=== PATIENT | male | born 1970 | race Caucasian/White ===

== ENCOUNTER 2016-09-04 17:40 | Emergency (ER) | payer OTHER ==
[~2016-09-04] VITALS: Ht 185.4 cm; Wt 138.0 kg
[2016-09-04 18:22] VITALS: Ht 185.4 cm; Wt 138.0 kg
[2016-09-04] MEDS ORDERED: ONDANSETRON 4 MG INJ IM STA (21:18)
[2016-09-04] MEDS ORDERED: KETOROLAC 30 MG INJ IM STA (21:18)
--- NOTE | 2016-09-04 21:25 | ERD ---
ER Documentation Chief Complaint Date/Time DATE: 09/04/16 TIME: 21:22 Chief Complaint Shooting back pain, AP, vomiting X 1 hour ago. HPI This is a 46 year-old male who presents to the emergency department today complaining of right-sided back pain that started this afternoon. Patient states that it moved into his stomach and he threw up one time in the parking lot here at the hospital. States he had diarrhea approximately one week ago for which he saw his primary care physician. Denies any fevers or chills. ROS All systems reviewed and are negative except as per history of present illness. Medications Home Meds Active Scripts Ondansetron Hcl* (Zofran*) 4 Mg Tablet, 4 MG PO Q6H for NAUSEA AND/OR VOMITING, #30 TAB Prov:KINJAL TOVAR PA-C 09/04/16 Naproxen* (Naprosyn*) 500 Mg Tablet, 500 MG PO BID Y for PAIN AND/OR INFLAMMATION, #30 TAB Prov:KINJAL TOVAR PA-C 09/04/16 Hydrocodone/Acetaminophen (Perry 10-325 Tablet) 1 Each Tablet, 1 TAB PO Q6H Y for PAIN, #15 TAB Prov:KINJAL TOVAR PA-C 09/04/16 Physical Exam Vitals Vital Signs Date Time Temp Pulse Resp B/P Pulse Ox O2 Delivery O2 Flow Rate FiO2 09/04/16 18:22 97.9 83 16 162/93 97 Physical Exam Const: No acute distress Head: Atraumatic Eyes: Normal Conjunctiva ENT: Normal External Ears, Nose and Mouth. Neck: Full range of motion..~ No meningismus. Resp: Clear to auscultation bilaterally Cardio: Regular rate and rhythm, no murmurs Abd: Soft, non tender, non distended. Normal bowel sounds. Mild right-sided tenderness. No tenderness at McBurney's. No left lower quadrant pain. Skin: No petechiae or rashes Back: No midline tenderness. Right-sided paraspinal and flank tenderness Ext: No cyanosis, or edema Neur: Awake and alert Psych: Normal Mood and Affect Result Diagram: 09/04/16214909/04/162149 Results 24 hrs Laboratory Tests Test 09/04/16 21:40 09/04/16 21:50 Urine Bacteria RARE Urine Bilirubin NEGATIVE Urine Clarity SL HAZY Urine Color LT. YELLOW Urine Glucose >=1000% Urine Hemoglobin 3+ Urine Ketones NEGATIVE Urine Leukocyte Esterase NEGATIVE Urine Microscopic RBC >50/HPF Urine Microscopic WBC 0-2/HPF Urine Nitrite NEGATIVE Urine Specific [place] 1.025 Urine Squamous Epithelial Cells RARE Urine Total Protein 2+ Urine Urobilinogen 0.2 E.U./dL Urine pH 6.0 Alanine Aminotransferase (ALT/SGPT) 86IU/L Albumin 4.4g/dl Albumin/Globulin Ratio 1.12 Alkaline Phosphatase 99IU/L Anion Gap 18 Aspartate Amino Transf (AST/SGOT) 57IU/L Basophils # 0.010^3/ul Basophils % 0.3% Blood Morphology Comment Blood Urea Nitrogen 17mg/dl Calcium Level 9.8mg/dl Carbon Dioxide Level 32mmol/L Chloride Level 96mmol/L Creatinine 0.93mg/dl Direct Bilirubin 0.00mg/dl Eosinophils # 0.110^3/ul Eosinophils % 0.7% Globulin 3.90g/dl Glucose Level 233mg/dl Hematocrit 43.6% Hemoglobin 15.0g/dl Indirect Bilirubin 0.7mg/dl Lipase 103U/L Lymphocytes # 2.110^3/ul Lymphocytes % 20.1% Mean Corpuscular Hemoglobin 30.2pg Mean Corpuscular Hemoglobin Concent 34.5g/dl Mean Corpuscular Volume 87.4fl Mean Platelet Volume 7.3fl Monocytes # 0.510^3/ul Monocytes % 5.1% Neutrophils # 7.810^3/ul Neutrophils % 73.8% Nucleated Red Blood Cells # 0.010^3/ul Nucleated Red Blood Cells % 0.0/100WBC Platelet Count 61293^3/UL Potassium Level 4.7mmol/L Red Blood Count 4.9810^6/ul Red Cell Distribution Width 12.6% Sodium Level 141mmol/L Total Bilirubin 0.7mg/dl Total Protein 8.3g/dl White Blood Count 10.510^3/ul Current Medications Medications (Trade) Dose Ordered Sig/Donavon Route PRN Reason Start Time Stop Time Status Last Admin Dose Admin Ondansetron HCl (Zofran Inj) 4 mg ONCE STAT IM 09/04/16 21:18 09/04/16 21:21 DC Ketorolac Tromethamine (Toradol) 30 mg ONCE STAT IM 09/04/16 21:18 1/4/17 21:21 DC 09/04/16 22:05 Patient: AUGUSTINA JAIMES : 1970 Age: 46 Sex: M MR #: [id number] DOS: 09/04/162117 Ordering MD: KINJAL TOVAR PA-C Location: [facility] Room/Bed: PROCEDURE: CT Abdomen and Pelvis without contrast. CLINICAL INDICATION: Abdominal and pelvic pain. Right-sided pain. TECHNIQUE: CT scan of the abdomen and pelvis without contrast was performed. Coronal and sagittal reformatted images were obtained from the axial source images. Images were reviewed on a high-resolution PACS workstation. Total exam DLP is 1459.89 mGy-cm. CTDIvol is 23.69 mGy. One or more of the following dose reduction techniques were used: Automated exposure control, adjustment of the mA and/or kV according to patient size, use of iterative reconstruction technique. COMPARISON: None. FINDINGS: The lung bases are normal. There is no pleural effusion. The liver is enlarged and diffusely decreased attenuation consistent with fatty metamorphosis. There is no focal hepatic lesion. The gallbladder and bile ducts are normal. The spleen is normal in size. There is no focal splenic lesion. Both adrenals are normal with no enlargement or mass. The pancreas is unremarkable with no mass or evidence of pancreatitis. There is no renal mass or hydronephrosis. There is a 0.1 cm nonobstructing calculus in the mid right kidney. There is no other urinary tract calculus. The abdominal aorta is not dilated. There is no retroperitoneal lymphadenopathy or mass. There is no pelvic lymphadenopathy or mass. The bladder and distal ureters are normal. The appendix is well seen and appears normal. The bowel and mesentery are normal. There is no free fluid or free gas. There are mild degenerative changes of the spine. There is no fracture or lytic lesion. IMPRESSION: 1. Hepatomegaly. 2. Fatty metamorphosis of the liver. 3. Nonobstructing 0.1 cm calculus in the mid right kidney. No other urinary tract calculus or hydronephrosis. 4. Normal appendix. 5. Mild degenerative changes of the spine. 6. Otherwise normal noncontrast CT scan of the abdomen and pelvis. RPTAT: QQ .Flakito Barragan MD, Date Time Electronically viewed and signed by .Flakito Barragan MD, on 09/04/2016 22:22 .R/ CC: KINJAL TOVAR PA-C Procedures/MDM This is a 38-year-old male who presents emergency department today complaining of sudden onset right-sided flank pain that started this afternoon. Patient also stated that he vomited an hour ago. Patient indicated he had a history of kidney stones greater than 20 years ago. Patient did have some flank pain and some right-sided abdominal pain and therefore I did obtain laboratory work as well as imaging Laboratory work shows an elevated white blood count. He is not anemic. His platelets are within normal limits. Electrolytes are within normal limits. Glucose is elevated to 33. Liver function is elevated. Lipase is normal limits. UA is negative for infection. There is greater then [address] abdomen and pelvis noncontrast shows hepatomegaly. Nonobstructing 0.1; he was in the mid right kidney. No other urinary tract Or hydronephrosis. Appendix is normal. There are mild degenerative changes of the spine. There is no free fluid or free gas. There is no pelvic lymphadenopathy or mass. Gallbladder and bile ducts are normal. Patient has no midline tenderness and a lot of bowel or bladder control at low suspicion for cauda equina or abscess. Do not feel that the patient requires images on his spine. . Patient's symptoms of sudden onset flank pain most consistent with renal colic and nephrolithiasis. There is no indication for any acute surgical abdomen at this time. Patient was given Zofran and Toradol here in the emergency department. Patient stated he had no pain upon discharge. He'll be given a prescription for Zofran and Perry and Naprosyn.. At this time the patient is stable for discharge and outpatient management. Patient should follow up with their PCP in the next 1-2 days. They may return to the emergency department sooner for any persistent or worsening of symptoms. Patient understood and agreed with the plan. Departure Diagnosis: Primary Impression: Flank pain Additional Impression: Nephrolithiasis Condition: Fair KINJAL TOVAR PA-C Sep 04, 2016 21:25
[2016-09-04 22:12] LABS: BASOPHILS % 0.3 % (0.0-2.0); EOSINOPHILS # 0.1 10^3/ul (0.0-0.5); EOSINOPHILS % 0.7 % (0.0-7.0); HEMATOCRIT 43.6 % (42.0-52.0); LYMPHOCYTES # 2.1 10^3/ul (0.8-2.9); LYMPHOCYTES % 20.1 % (15.0-51.0); MEAN CORPUSCULAR HEMOGLOBIN 30.2 pg (29.0-33.0); MEAN CORPUSCULAR HGB CONC 34.5 g/dl (32.0-37.0); MEAN CORPUSCULAR VOLUME 87.4 fl (82.0-101.0); MEAN PLATELET VOLUME 7.3 fl (7.4-10.4); MONOCYTE # 0.5 10^3/ul (0.3-0.9); MONOCYTES % 5.1 % (0.0-11.0); NEUTROPHIL # 7.8 10^3/ul (1.6-7.5); NEUTROPHILS % 73.8 % (39.0-77.0); PLATELET COUNT 288 10^3/UL (140-440); RED BLOOD COUNT 4.98 10^6/ul (4.70-6.10); RED CELL DISTRIBUTION WIDTH 12.6 % (11.5-14.5); UNCORRECTED WBC 10.5 10^3/ul (4.8-10.8); WHITE BLOOD COUNT 10.5 10^3/ul (4.8-10.8)
[2016-09-04 22:14] LABS: CONDITION 1
[2016-09-04 22:15] LABS: ALBUMIN 4.4 g/dl (3.3-4.9)
[2016-09-04 22:16] LABS: POTASSIUM 4.7 mmol/L (3.5-5.1)
[2016-09-04 22:18] LABS: ALBUMIN/GLOBULIN RATIO 1.12; BILIRUBIN,INDIRECT 0.7 mg/dl (0-1.1); BILIRUBIN,TOTAL 0.7 mg/dl (0.2-1.3); CREATININE 0.93 mg/dl (0.61-1.24); TOTAL PROTEIN 8.3 g/dl (6.1-8.1)
[2016-09-04 22:19] LABS: CALCIUM 9.8 mg/dl (8.4-10.2)
--- NOTE | 2016-09-04 22:22 | RADRPT ---
PROCEDURE: CT Abdomen and Pelvis without contrast. CLINICAL INDICATION: Abdominal and pelvic pain. Right-sided pain. TECHNIQUE: CT scan of the abdomen and pelvis without contrast was performed. Coronal and sagittal reformatted images were obtained from the axial source images. Images were reviewed on a high-resolu [place] PACS workstation. Total exam DLP is 1459.89 mGy-cm. CTDIvol is 23.69 mGy. One or more of the following dose reduction techniques were used: Automated exposure control, adjustment of the mA and/ or kV according to patient size, use of iterative reconstruction technique. COMPARISON: None. FINDINGS: The lung bases are normal. There is no pleural effusion. The liver is enlarged and diffusely decreased attenuation consistent with fatty metamorphosis. Ther e is no focal hepatic lesion. The gallbladder and bile ducts are normal. The spleen is normal in size. There is no focal splenic lesion. Both adrenals are normal with no enlargement or mass. The pancreas is unremarkable with no mass or evidence of pancreatitis. There is no renal mass or hydronephrosis. There is a 0.1 cm nonobstructing calculus in the mid righ t kidney. There is no other urinary tract calculus. The abdominal aorta is not dilated. There is no retroperitoneal lymphadenopathy or mass. There is no pelvic lymphadenopathy or mass. The bladder and distal ureters are normal. The appendix is well seen and appears normal. The bowel and mesentery are normal. There is no free fluid or free gas. There are mild degenerative changes of the spine. There is no fracture or lytic lesion. IMPRESSION: 1. Hepatomegaly. 2. Fatty metamorphosis of the liver. 3. Nonobstructing 0.1 cm calculus in the mid right kidney. No other urinary tract calculus or hydr onephrosis. 4. Normal appendix. 5. Mild degenerative changes of the spine. 6. Otherwise normal noncontrast CT scan of the abdomen and pelvis. RPTAT: QQ .Flakito Barragan MD, MD Date Time Electronically viewed and signed by .Flakito Barragan MD, on 09/04/2016 22:22 .R/
[2016-09-04 22:27] LABS: ADD UMIC YES; URINE BILIRUBIN (Dip) NEGATIVE (NEGATIVE); URINE BLOOD (Dip) 3+ (NEGATIVE); URINE COLOR LT. YELLOW (YELLOW); URINE GLUCOSE (Dip) >=1000 % (NEGATIVE); URINE KETONES (Dip) NEGATIVE (NEGATIVE); URINE LEUKOCYTE ESTERASE (Dip) NEGATIVE (NEGATIVE); URINE NITRITE (Dip) NEGATIVE (NEGATIVE); URINE TOTAL PROTEIN (Dip) 2+ (NEGATIVE); URINE UROBILINOGEN (Dip) 0.2 E.U./dL (0.1-1.0)
[2016-09-04 22:57] LABS: SQUAMOUS EPITHELIAL CELL,UR RARE; URINE RBCS >50 /HPF (0)
[2016-09-04 22:58] LABS: BACTERIA,URINE RARE
[2016-09-04] MEDS ORDERED: HYDR-902 PO (23:13)
[2016-09-04] MEDS ORDERED: NAPR-260 PO (23:13)
[2016-09-04] MEDS ORDERED: ONDA4TAB8 PO (23:13)
[2016-09-04 23:31] VITALS: BP 127/82; PULSE 83; RESP 18
== END 2016-09-04 23:59 | disposition home or self-care (01) ==
LOC: FTE 17:40
DX: R10.9 Unspecified abdominal pain (principal); N20.0 Calculus of kidney; R11.10 Vomiting, unspecified
CPT/HCPCS: 74176; 80053; 81001; 83690; 85025; J1885; J2405; 36415; 81003; 96372